=== PATIENT | male | born 1960 | race Caucasian/White ===

== ENCOUNTER 2023-04-16 06:32 | Day surgery (SDC) | payer OTHER ==
[~2023-04-16] VITALS: Ht 188 cm; Wt 90.7 kg
[2023-04-16] MEDS ORDERED: MIDAZOLAM HCL 5 MG/5 ML VIAL ONE (06:45)
[2023-04-16] MEDS ORDERED: MEPERIDINE 100 MG INJ. 100 MG/ML VIAL ONE (06:45)
[2023-04-16] MEDS ORDERED: SIMETHICONE 40 MG/0.6 ML ML ONE (07:39)
[2023-04-16 14:57] VITALS: BP_SYST 168; PULSE 76; RESP 16; TEMP 97; O2SAT 100
== END 2023-04-16 08:50 | disposition home or self-care (01) ==
LOC: SDS 06:32 → SMU 06:35 → SDS 08:50
PROVIDERS: ATTEND Internal Medicine Gastroenterology
DX: Z12.11 Encounter for screening for malignant neoplasm of colon (principal); K64.8 Other hemorrhoids; K57.30 Diverticulosis of large intestine without perforation or abscess without bleeding; R79.89 Other specified abnormal findings of blood chemistry; I10 Essential (primary) hypertension; Z79.82 Long term (current) use of aspirin; Z79.899 Other long term (current) drug therapy
CPT/HCPCS: 45378; 99152; G0378; J2250; J2175